=== PATIENT | male | born 1970 | race Caucasian/White ===

== ENCOUNTER 2023-02-09 20:44 | Emergency (ER) | payer OTHER ==
[~2023-02-09 20:44] MED LIST: Iopamidol 300 61% 100 ML VIAL FS ONE
[2023-02-09] MEDS ORDERED: Ketorolac Tromethamine 30 MG/ML VIAL ONE (22:34)
[2023-02-09 23:11] LABS: #Eosinphils 0.2 10x3/uL (0.0-0.5); #Monocytes 0.5 10x3/uL (0.0-1.1); #Neutrophils 6.1 10x3/uL (1.5-8.4); %Basophils 0.4 % (0.0-2.0); %Eosinophils 1.9 % (0.0-6.0); %Monocytes 5.9 % (0.0-10.0); %Neutrophils 78.5 % (40.0-75.0); Hematocrit 35.8 % (38.8-50.0); Hemoglobin 12.2 g/dL (13.5-17.5); Mean Corpuscular HGB CONC 34.1 g/dL (32.0-36.0); Mean Corpuscular Volume 82.1 fl (81.2-95.1); Mean Platelet Volume 8.5 fl (7.4-10.4); Platelet Count 538 10x3/uL (150-450); RBC Distribution Width 12.9 % (11.5-14.5); Red Blood Cell (RBC) Count 4.36 10x6/uL (4.32-5.72); White Blood Cell (WBC) Count 7.8 10x3/uL (3.5-10.5)
[2023-02-09 23:17] LABS: Anion Gap 17 mmol/L (10-20); BUN (Urea Nitrogen) 12 mg/dL (8.9-20.6); Bilirubin, Total 1.7 mg/dL (0.2-1.2); Calc. Creatinine Clearance 0 mL/min (70-130); Calcium 9.2 mg/dL (7.8-10.44); Carbon Dioxide 26 mmol/L (22-29); Chloride 96 mmol/L (98-107); Estimated GFR 109; Glucose 99 mg/dL (70-105); Potassium 3.6 mmol/L (3.5-5.1); Protein, Total 8.5 g/dL (6.0-8.3); Sodium 135 mmol/L (136-145)
[2023-02-09 23:18] LABS: ALT (SGPT) 98 U/L (8-55); AST (SGOT) 116 U/L (5-34); Albumin 3.5 g/dL (3.5-5.0); Alkaline Phosphatase 456 U/L (40-110); Lipase 32 U/L (8-78)
[2023-02-10] MEDS ORDERED: Morphine 4 MG/ML VIAL ONE (04:22)
== END 2023-02-10 07:16 | disposition short-term general hospital (02) ==
LOC: CSHERS 20:44 → EEVIPCON 20:44 → CSHERS 02-10 07:16
DX: T85.520A Displacement of bile duct prosthesis, initial encounter (principal); I10 Essential (primary) hypertension; Z87.891 Personal history of nicotine dependence
CPT/HCPCS: 74177; 80053; 83690; 85025; 96374; 96375; J1885; Q9967